=== PATIENT | female | born 1945 | race Caucasian/White ===

== ENCOUNTER 2021-08-04 16:41 | Emergency (ER) | payer MEDICARE, OTHER ==
[2021-08-04] MEDS ORDERED: diphenhydrAMINE 50 MG/ML SDV IM ONE (16:46)
[2021-08-04] MEDS ORDERED: methylPREDNISolone Sodium Succinate 125 MG/2 ML SDV IM ONE (16:46)
[2021-08-04] MEDS ORDERED: LORazepam 2 MG/ML SDV IM ONE (16:47)
--- NOTE | 2021-08-04 17:00 | EDM.PDOC ---
ED HPI GENERAL MEDICAL PROBLEM - General Stated Complaint: ALLERGICC REACTION TO BEE STING Time Seen by Provider: 08/04/21 17:00 - History of Present Illness INITIAL COMMENTS - FREE TEXT/NARRATIVE: 76 y/o F c/o allergic reaction after being stung on the R neck by a bee. C/o itching and hives all over. Occurred at 4pm. She took 50mg bendaryl at 414 pm with no relief. No SOB. NO nvd. Onset: Today Duration: Minutes: Location: Reports: Generalized Quality: Reports: Other (itching) Improves with: Reports: None Worsens with: Reports: None - Related Data Allergies Allergy/AdvReac Type Severity Reaction Status Date / Time codeine Allergy Blurred Verified 08/04/21 17:02 Vision Sulfa (Sulfonamide Allergy Hives Verified 08/04/21 17:02 Antibiotics) Home Meds: Home Meds Acetaminophen [Tylenol] 325 mg PO Q4H PRN 08/04/21 [History] Aspirin [Aspirin EC] 81 mg PO DAILY 08/04/21 [History] Losartan Potassium [Cozaar] 100 mg PO DAILY 08/04/21 [History] Pravastatin [Pravachol] 10 mg PO DAILY 08/04/21 [History] dilTIAZem HCL [Diltiazem 24Hr ER (Xr)] 240 mg PO DAILY 08/04/21 [History] ED ROS ALLERGIC REACTION - Review of Systems Review Of Systems: Comprehensive ROS is negative, except as noted in HPI. ED EXAM GENERAL NO PERIP PULSE - Physical Exam Exam: See Below Exam Limited By: No Limitations General Appearance: Alert Eye Exam: Bilateral Eye: PERRL Nose: Normal Inspection, Normal Mucosa, No Blood Throat/Mouth: Normal Inspection, Normal Lips, Normal Teeth, Normal Gums, Normal Oropharynx, Normal Voice, No Airway Compromise Head: Atraumatic, Normocephalic Neck: Supple, Non-Tender Respiratory/Chest: No Respiratory Distress, Lungs Clear Cardiovascular: Normal Peripheral Pulses, Tachycardia GI/Abdominal: Soft, Non-Tender (Female) Exam: Deferred Rectal (Female) Exam: Deferred Neurological: Alert, Oriented Psychiatric: Anxious Skin Exam: Other (Diffuse urticaria throughout) Course - Vital Signs Last Recorded V/S: Last Vital Signs Temp 97.1 F 08/04/21 16:43 Pulse 78 08/04/21 16:43 Resp 16 08/04/21 16:43 BP 120/66 08/04/21 16:43 Pulse Ox 98 08/04/21 16:43 - Orders/Labs/Meds Meds: Medications Discontinued Medications Generic Name Dose Route Start Last Admin Trade Name Kenia PRN Reason Stop Dose Admin Diphenhydramine HCl 50 mg 08/04/21 16:46 08/04/21 16:56 Diphenhydramine 50 Mg/Ml Sdv IM 08/04/21 16:47 50 mg ONETIME ONE Administration Lorazepam 1 mg 08/04/21 16:47 08/04/21 17:01 Lorazepam 2 Mg/Ml Sdv IM 08/04/21 16:48 1 mg ONETIME ONE Administration Methylprednisolone Sodium Succinate 125 mg 08/04/21 16:46 08/04/21 17:00 Methylprednisolone Sodium Succinate 125 Mg/2 Ml Sdv IM 08/04/21 16:47 125 mg ONETIME ONE Administration - Re-Assessments/Exams Free Text/Narrative Re-Assessment/Exam: 08/04/21 18:09 On reassessment pt is feeling much better and has had symptom resolution. She would like to go home. Departure - Departure Time of Disposition: 18:09 Disposition: Home, Self-Care 01 Clinical Impression: Allergic reaction to bee sting - Discharge Information *PRESCRIPTION DRUG MONITORING PROGRAM REVIEWED*: Not Applicable *COPY OF PRESCRIPTION DRUG MONITORING REPORT IN PATIENT AGUILA: Not Applicable Instructions: Allergies, Adult, [id number] Additional Instructions: RX Epi Pen RX: Predisone RX: Zyrtec If any new symptoms or concerns develop contact your [facility] care facility or return to the ER. Sepsis Event Note (ED) - Focused Exam Vital Signs: Vital Signs Temp Pulse Resp BP Pulse Ox 08/04/21 16:43 97.1 F 78 16 120/66 98
== END 2021-08-04 18:20 | disposition home or self-care (01) ==
LOC: DL.ED 16:41
DX: T63.441A Toxic effect of venom of bees, accidental (unintentional), initial encounter (principal); Z88.5 Allergy status to narcotic agent; Z88.2 Allergy status to sulfonamides
CPT/HCPCS: 96372; 99282; J1200; J2060; J2930